=== PATIENT | male | born 1945 | race Caucasian/White ===

== ENCOUNTER 2017-09-26 16:50 | Emergency (ER) | payer BC ==
[~2017-09-26] VITALS: Ht 177.8 cm; Wt 113.4 kg
[~2017-09-26 16:50] MED LIST: ASPIRIN81 MG PO; CIPRO500 MG PO; GLIPIZIDE5 MG PO; HCTZ/LISINOPRIL1 TA2 PO; LOMOTIL 0.025 M1 TAB PO; METFORMIN500 MG PO; PROCTOCREAM-HC2.5% TP; SIMVASTATIN20 MG PO
[2017-09-26] MEDS ORDERED: LISINOPRIL5 MG PO (16:53)
== END 2017-09-26 19:15 | disposition short-term general hospital (02) ==
LOC: ED 16:50
DX: S06.0X1A Concussion with loss of consciousness of 30 minutes or less, initial encounter (principal); S16.1XXA Strain of muscle, fascia and tendon at neck level, initial encounter; S00.93XA Contusion of unspecified part of head, initial encounter; R53.1 Weakness; Z79.82 Long term (current) use of aspirin; W01.0XXA Fall on same level from slipping, tripping and stumbling without subsequent striking against object, initial encounter; Y93.89 Activity, other specified; Y92.89 Other specified places as the place of occurrence of the external cause; Y99.8 Other external cause status